=== PATIENT | female | born 1980 | race Caucasian/White ===

== ENCOUNTER 2017-03-07 14:06 | Emergency (ER) | payer OTHER ==
[~2017-03-07] VITALS: Ht 157.5 cm; Wt 70.0 kg
[~2017-03-07 14:06] MED LIST: BACL10TA PO; BUPR150CR PO; CARDCAP2; DICL1GEL7 TOPICAL; FISH500C; GABA600T PO; LEFL20 PO; OMEP40CA2 PO; PAME75CA PO; PERC10TA27 PO; PLAQ200T PO; PROB1CAP12; TRIA1SPR5; VITA2000 PO
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
[2017-03-07 14:54] LABS: AUTOMATED NEUTROPHIL # 5.5 TH/MM3 (1.8-7.7); BASOPHIL # 0.1 TH/MM3 (0-0.2); BASOPHIL % 0.9 % (0.0-2.0); EOSINOPHIL # 0.1 TH/MM3 (0-0.4); EOSINOPHIL % 1.5 % (0.0-4.0); HEMATOCRIT 42.2 % (35.0-46.0); HEMO FLAGS DIFF FINAL; LYMPH % 19.5 % (9.0-44.0); LYMPHOCYTE # 1.5 TH/MM3 (1.0-4.8); MEAN CELL VOLUME 87.5 FL (80.0-100.0); MEAN CORPUSCULAR HEMOGLOBIN 28.3 PG (27.0-34.0); MEAN CORPUSCULAR HGB CONC 32.3 % (32.0-36.0); MONO % 7.9 % (0.0-8.0); NEUT % 70.2 % (16.0-70.0); PLATELET COUNT 215 TH/MM3 (150-450); RED BLOOD COUNT 4.83 MIL/MM3 (4.00-5.30); RED CELL DISTRIBUTION WIDTH 13.8 % (11.6-17.2); WHITE BLOOD COUNT 7.8 TH/MM3 (4.0-11.0)
[2017-03-07 15:08] LABS: BICARBONATE 29.5 MEQ/L (21.0-32.0); POTASSIUM 4.1 MEQ/L (3.5-5.1)
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
[2017-03-07] MEDS ORDERED: SODIUM CHLORIDE 0.9% FLUSH 10 ML FLUSH IVF PRN (16:00)
[2017-03-07 16:22] VITALS: BP 123/86; PULSE 90; RESP 18; O2SAT 97; O2SAT 98
--- NOTE | 2017-03-07 17:25 | RADRPT ---
EXAM DATE/TIME: 03/07/2017 17:07 [facility] COMPARISON: No previous studies available for comparison. INDICATIONS : Seizure today. RADIATION DOSE: 31.96 CTDIvol (mGy) MEDICAL HISTORY : Seizures. Arthritis. SURGICAL HISTORY : None. ENCOUNTER: Initial ACUITY: 1 day PAIN SCALE: 0/10 LOCATION: cranial TECHNIQUE: Multiple contiguous axial images were obtained of the head. Using automated exposure control and adj ustment of the mA and/or kV according to patient size, radiation dose was kept as low as reasonably a chievable to obtain optimal diagnostic quality images. DICOM format image data is available electro nically for review and comparison. FINDINGS: CEREBRUM: The ventricles are normal for age. No evidence of midline shift, mass lesion, hemorrhage or acute in farction. No extra-axial fluid collections are seen. POSTERIOR FOSSA: The cerebellum and brainstem are intact. The 4th ventricle is midline. The cerebellopontine angle i s unremarkable. EXTRACRANIAL: The visualized portion of the orbits is intact. SKULL: The calvaria is intact. No evidence of skull fracture. CONCLUSION: Normal examination. No evidence of acute infarct, hemorrhage, mass or edema. Kishor Méndez MD on March 07, 2017 at 17:23 Board Certified Radiologist. This report was verified electronically.
[2017-03-07] MEDS ORDERED: hydrALAZINE HCL 20 MG/ML VIAL IV PUSH ONE (18:15)
--- NOTE | 2017-03-08 16:10 | EKG ---
Date Performed: 03/07/2017 Time Performed: 14:21:11 PTAGE: 36 years EKG: SINUS TACHYCARDIA POOR R WAVE PROGRESSION SLIGHT NONSPECIFIC IVCD ABNORMAL RHYTHM ECG NO PREVIOUS TRACING DOCTOR: Callum Foley Interpretating Date/Time 03/08/2017 16:08:40
[2017-04-03] MEDS ORDERED: PERC10TA27 PO (15:08)
[2017-04-03] MEDS ORDERED: MEDR4PAK PO ×2 (15:10→15:19)
[2017-05-07] MEDS ORDERED: PERC10TA27 PO (13:45)
== END 2017-03-07 19:32 | disposition home or self-care (01) ==
LOC: NEPE 14:06
DX: R56.9 Unspecified convulsions (principal); M79.7 Fibromyalgia
CPT/HCPCS: 70450; 80048; 80307; 85025; 93005

== ENCOUNTER → 2017-03-16 | Outpatient (CLI) | payer OTHER ==
[~2017-03-16] MED LIST changes: -BACL10TA PO; +MEDR4PAK PO
--- NOTE | 2017-03-19 08:08 | MG ---
cc: NISHI SWIFT Lab No: [id number] Date: 03/16/17 Age: 36 Sex: F Race: Outpatient. Fair effort on hyperventilation. Right leg started shaking, then left leg, then arms. A 36-year-old woman. MEDICATIONS 1. Wellbutrin. 2. Percocet. 3. Pamelor. An 8 to 9 hertz 60 microvolt symmetric posterior rhythm is seen. Photic stimulation is performed without any posterior driving. Hyperventilation performed with fair effort without major change in the background. No epileptiform or seizure activity is noted. There were no hemisphere asymmetries. IMPRESSION A normal awake EEG. No evidence for a focal or diffuse abnormality. The Wellbutrin, however, can cause seizures and if seizure is thought likely that medication should be stopped. MD TOMASA Aguilar/JAXSON /7:31 PM /8:05 AM
== END ==
LOC: HEEG 06:45
PROVIDERS: ATTEND Family Medicine
DX: R56.9 Unspecified convulsions (principal)
CPT/HCPCS: 95819